=== PATIENT | female | born 1990 | race Caucasian/White ===

== ENCOUNTER 2021-08-05 09:42 | Emergency (ER) | payer BC, MEDICAID, OTHER ==
[~2021-08-05] VITALS: Ht 167.6 cm; Wt 59.0 kg
[2021-08-05 09:42] VITALS: BP 112/74
== END 2021-08-05 11:51 | disposition left against medical advice (07) ==
LOC: ER 09:42 → EDBD 09:42 → ER 09:53
DX: R53.83 Other fatigue (principal)

== ENCOUNTER 2023-06-06 15:40 | Inpatient (IN) | payer MEDICAID ==
[~2023-06-06] VITALS: Ht 170.2 cm; Wt 81.7 kg
[2023-06-06] MEDS ORDERED: cefTRIAXone 1GM/50ML D5W 50 ML IV ONE (16:00)
[2023-06-06] MEDS ORDERED: SODIUM CHLORIDE 0.9% 1,000 ML IV ONE ×2 (16:00)
[2023-06-06 16:46] VITALS: PULSE 88; RESP 18; O2SAT 100
[2023-06-06 17:12] LABS: Basophils # (auto) 0.1 10 ^3/uL (0-0.2); Basophils % (auto) 1.1 % (0.0-2.0); Eosinophils # (auto) 0.1 10 ^3/uL (0-0.8); Eosinophils % (auto) 2.3 % (0.0-7.0); Hematocrit 40.8 % (36.0-46.0); Hemoglobin 13.9 g/dL (12.2-16.2); Lymphocytes # (auto) 1.5 10 ^3/uL (0.4-5.4); Lymphocytes % (auto) 26.1 % (10.0-50.0); Mean Corpuscular Hemoglobin 31.8 pg (28.0-32.0); Mean Corpuscular Volume 93.6 fL (80.0-100.0); Monocytes # (auto) 0.3 10 ^3/uL (0-1.3); Monocytes % (auto) 5.3 % (0.0-12.0); Neutrophils # (auto) 3.7 10 ^3/uL (1.6-8.6); Neutrophils % (auto) 65.2 % (37.0-80.0); Nucleated Red Blood Cells % 0.1 %; Red Blood Cells 4.36 10^6/uL (4.0-5.20); Red Cell Distribution Width 12.9 % (11.8-14.3); White Blood Cell 5.6 10^3/uL (4.4-10.8)
[2023-06-06 17:29] LABS: Alanine Aminotransferase 15 U/L (7-40); Albumin 4.3 g/dL (3.2-4.8); Alkaline Phosphatase 51 U/L (46-116); Anion Gap 5.6 (5-15); Aspartate Aminotransferase 9 U/L (13-40); BUN/Creatinine Ratio 11.5 (10.0-20.0); Blood Urea Nitrogen 9 mg/dL (9-23); Carbon Dioxide 25.4 mmol/L (20-30); Chloride 108 mmol/L (98-107); Glucose 91 mg/dL (74-106); Potassium 3.8 mmol/L (3.5-5.1); Sodium 139 mmol/L (136-145)
[2023-06-06 17:30] LABS: Bilirubin, Total 2.1 mg/dL (0.2-1.0); Total Protein 6.6 g/dL (5.7-8.2)
[2023-06-06] MEDS ORDERED: SILVER SULFADIAZINE 1 % TOPICAL CREAM 50GM TOP ONE (19:00)
[2023-06-06] MEDS ORDERED: ACETAMINOPHEN 325 MG TAB PO PRN (19:00)
[2023-06-06] MEDS: HYDROcodone-ACET 5/325MG TAB PO PRN (19:03)
[2023-06-06] MEDS ORDERED: NALOXONE HCL 1MG/ML 2ML SYRINGE ONE (19:09)
[2023-06-06 19:20] VITALS: PULSE 90; RESP 20; O2SAT 97
[2023-06-06] MEDS ORDERED: LORazepam 2MG/ML-1ML VIAL ONE ×2 (19:26→19:46)
[2023-06-06] MEDS ORDERED: NALOXONE HCL 1MG/ML 2ML SYRINGE IV ONE ×2 (19:45→20:15)
[2023-06-06] MEDS ORDERED: LORazepam 2MG/ML-1ML VIAL IV PRN ×2 (20:00→20:15)
[2023-06-06 20:05] VITALS: PULSE 70; RESP 18; O2SAT 100
[2023-06-06 21:19] LABS: Urine Bacteria FEW /hpf (None Seen); Urine Blood 2+ /uL (Negative); Urine Clarity HAZY (Clear); Urine Color Yellow (Yellow); Urine Mucus FEW (None Seen); Urine Protein, UAD TRACE (Negative); Urine Specific Gravity 1.024 (1.001-1.035); Urine Urobilinogen Normal (Negative); Urine WBC 58 /hpf (0 - 5); Urine pH 5.5 (5.0-8.0)
[2023-06-06 21:24] LABS: Amphetamine Screen, Urine Pos (NEGATIVE); Barbiturate Scree,Urine Neg (NEGATIVE); Benzodiazephine Screen, Urine Neg (NEGATIVE); Cannabinoid Screen, Urine Neg (NEGATIVE); Cocaine Screen, Urine Neg (NEGATIVE); Opiate Scree,Urine Neg (NEGATIVE); Phencyclidine Screen, Urine Neg (NEGATIVE)
[2023-06-06] MEDS: ASCORBIC ACID 500 MG TAB PO SCH (22:00)
[2023-06-06] MEDS ORDERED: levETIRAcetam 500 MG/5ML INJ IV ONE (22:40)
[2023-06-06] MEDS: SODIUM CHLORIDE 0.9% 1,000 ML IV SCH (22:59)
[2023-06-06] MEDS: SILVER SULFADIAZINE 1 % TOPICAL CREAM 50GM TOP SCH (23:00)
[2023-06-07 05:02] LABS: Basophils # (auto) 0.1 10 ^3/uL (0-0.2); Basophils % (auto) 1.1 % (0.0-2.0); Eosinophils # (auto) 0.2 10 ^3/uL (0-0.8); Eosinophils % (auto) 2.4 % (0.0-7.0); Hematocrit 38.4 % (36.0-46.0); Hemoglobin 13.1 g/dL (12.2-16.2); Lymphocytes % (auto) 29.2 % (10.0-50.0); Mean Corpuscular Hemoglobin 31.8 pg (28.0-32.0); Mean Corpuscular Volume 93.6 fL (80.0-100.0); Monocytes # (auto) 0.5 10 ^3/uL (0-1.3); Monocytes % (auto) 7.8 % (0.0-12.0); Neutrophils # (auto) 4.2 10 ^3/uL (1.6-8.6); Neutrophils % (auto) 59.5 % (37.0-80.0); Nucleated Red Blood Cells % 0.1 %; Red Cell Distribution Width 12.7 % (11.8-14.3)
[2023-06-07 05:22] LABS: Alanine Aminotransferase 11 U/L (7-40); Albumin 3.4 g/dL (3.2-4.8); Alkaline Phosphatase 40 U/L (46-116); Anion Gap 4.4 (5-15); Aspartate Aminotransferase < 8 U/L (13-40); BUN/Creatinine Ratio 11.5 (10.0-20.0); Blood Urea Nitrogen 7 mg/dL (9-23); Calcium 7.9 mg/dL (8.5-10.1); Carbon Dioxide 25.6 mmol/L (20-30); Chloride 112 mmol/L (98-107); Glucose 77 mg/dL (74-106); Potassium 3.6 mmol/L (3.5-5.1); Sodium 142 mmol/L (136-145)
[2023-06-07 05:23] LABS: Bilirubin, Total 1.8 mg/dL (0.2-1.0); Total Protein 5.3 g/dL (5.7-8.2)
[2023-06-07] MEDS: SODIUM CHLORIDE 0.9% 1,000 ML IV SCH ×2 (08:14→17:38)
[2023-06-07] MEDS: ENOXAPARIN SOD 40 MG/0.4 ML SYRINGE SC SCH (08:15)
[2023-06-07] MEDS: ASCORBIC ACID 500 MG TAB PO SCH ×2 (08:31→21:21)
[2023-06-07] MEDS: cefTRIAXone 1GM/50ML D5W 50 ML IV SCH (08:31)
[2023-06-07] MEDS: ZINC SULFATE 220mg CAP or TAB PO SCH (08:32)
[2023-06-07] MEDS: SILVER SULFADIAZINE 1 % TOPICAL CREAM 50GM TOP SCH ×2 (08:32→21:21)
[2023-06-07] MEDS: MULTIPLE VITAMIN TAB PO SCH (08:32)
[2023-06-07] MEDS: HYDROcodone-ACET 5/325MG TAB PO PRN ×2 (10:05→17:09)
[2023-06-07 10:14] VITALS: PULSE 84; RESP 19; O2SAT 94
[2023-06-07] MEDS ORDERED: VANCOMYCIN PER PHARMACY 0 MG IV SCH (12:45)
[2023-06-07] MEDS: VANCOMYCIN 1GM/250ML 250 ML IV SCH ×2 (13:28→23:52)
[2023-06-07] MEDS ORDERED: LORazepam 2MG/ML-1ML VIAL IV PRN (13:30)
[2023-06-07] MEDS ORDERED: VANCOMYCIN 1GM/250ML 250 ML IV SCH (14:00)
[2023-06-07 20:00] VITALS: PULSE 56; RESP 16; O2SAT 100
[2023-06-07 22:00] VITALS: BP 111/70; PULSE 61; RESP 16; TEMP 97.5; O2SAT 100
[2023-06-08] VITALS (21 sets, daily range): BP systolic 103–119; BP diastolic 62–83; PULSE 57–89; RESP 13–20; TEMP 97.5–98.3; O2SAT 93–100
[2023-06-08] MEDS: HYDROcodone-ACET 5/325MG TAB PO PRN ×2 (00:40→04:43)
[2023-06-08 06:08] LABS: Alanine Aminotransferase 11 U/L (7-40); Albumin 3.4 g/dL (3.2-4.8); Alkaline Phosphatase 40 U/L (46-116); Anion Gap 4.5 (5-15); Aspartate Aminotransferase 8 U/L (13-40); Bilirubin, Total 1.8 mg/dL (0.2-1.0); Calcium 8.1 mg/dL (8.5-10.1); Carbon Dioxide 26.5 mmol/L (20-30); Chloride 107 mmol/L (98-107); Glucose 76 mg/dL (74-106); Potassium 3.3 mmol/L (3.5-5.1); Sodium 138 mmol/L (136-145); Total Protein 5.2 g/dL (5.7-8.2)
[2023-06-08 06:09] LABS: Basophils # (auto) 0 10 ^3/uL (0-0.2); Basophils % (auto) 0.6 % (0.0-2.0); Eosinophils # (auto) 0.2 10 ^3/uL (0-0.8); Eosinophils % (auto) 4.9 % (0.0-7.0); Hematocrit 38.3 % (36.0-46.0); Lymphocytes % (auto) 39.3 % (10.0-50.0); Mean Corpuscular Hemoglobin 31.5 pg (28.0-32.0); Mean Corpuscular Hgb Conc. 34.1 g/dL (32.0-36.0); Mean Corpuscular Volume 92.5 fL (80.0-100.0); Monocytes # (auto) 0.3 10 ^3/uL (0-1.3); Neutrophils # (auto) 2.4 10 ^3/uL (1.6-8.6); Neutrophils % (auto) 48.2 % (37.0-80.0); Nucleated Red Blood Cells % 0.1 %; Red Blood Cells 4.14 10^6/uL (4.0-5.20); Red Cell Distribution Width 12.8 % (11.8-14.3)
[2023-06-08] MEDS: SODIUM CHLORIDE 0.9% 1,000 ML IV SCH (06:29)
[2023-06-08 06:40] LABS: BUN/Creatinine Ratio 9.3 (10.0-20.0); Blood Urea Nitrogen < 5 mg/dL (9-23)
[2023-06-08] MEDS ORDERED: POTASSIUM EFFERVESENT TAB 25 MEQ PO ONE (06:45)
[2023-06-08] MEDS: LORazepam 2MG/ML-1ML VIAL IV PRN ×8 (08:32→18:54)
[2023-06-08] MEDS ORDERED: POTASSIUM CHL 20MEQ/100ML 100 ML IV ONE (09:15)
[2023-06-08] MEDS: CALCIUM GLUC 1,000mg/50ml-NS 50 ML IV SCH ×2 (09:31→10:10)
[2023-06-08] MEDS: ASCORBIC ACID 500 MG TAB PO SCH ×2 (10:00→21:54)
[2023-06-08] MEDS: ZINC SULFATE 220mg CAP or TAB PO SCH (10:00)
[2023-06-08] MEDS: MULTIPLE VITAMIN TAB PO SCH (10:00)
[2023-06-08] MEDS: VANCOMYCIN 1GM/250ML 250 ML IV SCH ×2 (10:04→21:54)
[2023-06-08] MEDS: SILVER SULFADIAZINE 1 % TOPICAL CREAM 50GM TOP SCH ×2 (10:14→21:55)
[2023-06-08] MEDS: ENOXAPARIN SOD 40 MG/0.4 ML SYRINGE SC SCH (10:15)
[2023-06-08] MEDS ORDERED: LORazepam 2MG/ML-1ML VIAL IV PRN (10:30)
[2023-06-09] VITALS (18 sets, daily range): BP systolic 89–127; BP diastolic 44–88; PULSE 69–94; RESP 8–25; TEMP 97.1–98.4; O2SAT 95–100
[2023-06-09] MEDS: SODIUM CHLORIDE 0.9% 1,000 ML IV SCH ×2 (00:20→13:55)
[2023-06-09] MEDS: LORazepam 2MG/ML-1ML VIAL IV PRN ×2 (05:56→16:57)
[2023-06-09] MEDS: VANCOMYCIN 1GM/250ML 250 ML IV SCH ×2 (06:02→17:59)
[2023-06-09 06:06] LABS: Alanine Aminotransferase 10 U/L (7-40); Albumin 3.4 g/dL (3.2-4.8); Alkaline Phosphatase 39 U/L (46-116); Anion Gap 7.6 (5-15); Aspartate Aminotransferase < 8 U/L (13-40); Bilirubin, Total 1.7 mg/dL (0.2-1.0); Calcium 8.4 mg/dL (8.7-10.4); Carbon Dioxide 26.4 mmol/L (20-30); Chloride 106 mmol/L (98-107); Potassium 3.2 mmol/L (3.5-5.1); Sodium 140 mmol/L (136-145); Total Protein 5.2 g/dL (5.7-8.2)
[2023-06-09 06:25] LABS: Glucose 70 mg/dL (74-106)
[2023-06-09 06:31] LABS: Basophils # (auto) 0 10 ^3/uL (0-0.2); Basophils % (auto) 0.6 % (0.0-2.0); Eosinophils # (auto) 0.2 10 ^3/uL (0-0.8); Eosinophils % (auto) 4.3 % (0.0-7.0); Hematocrit 37.6 % (36.0-46.0); Hemoglobin 12.9 g/dL (12.2-16.2); Lymphocytes # (auto) 1.2 10 ^3/uL (0.4-5.4); Lymphocytes % (auto) 26.6 % (10.0-50.0); Mean Corpuscular Hemoglobin 31.6 pg (28.0-32.0); Mean Corpuscular Hgb Conc. 34.3 g/dL (32.0-36.0); Mean Corpuscular Volume 92.2 fL (80.0-100.0); Monocytes # (auto) 0.3 10 ^3/uL (0-1.3); Monocytes % (auto) 6.2 % (0.0-12.0); Neutrophils # (auto) 2.9 10 ^3/uL (1.6-8.6); Neutrophils % (auto) 62.3 % (37.0-80.0); Nucleated Red Blood Cells % 0.1 %; Red Blood Cells 4.08 10^6/uL (4.0-5.20); Red Cell Distribution Width 12.6 % (11.8-14.3); White Blood Cell 4.7 10^3/uL (4.4-10.8)
[2023-06-09 06:37] LABS: BUN/Creatinine Ratio 11.1 (10.0-20.0); Blood Urea Nitrogen < 5 mg/dL (9-23)
[2023-06-09] MEDS: cefTRIAXone 1GM/50ML D5W 50 ML IV SCH (08:35)
[2023-06-09] MEDS ORDERED: POTASSIUM CHLORIDE 40 MEQ, LIDOCAINE 1% (LOCAL ANESTH.) 4 ML in SODIUM CHL 0.9% 250 ML IV ONE (09:00)
[2023-06-09] MEDS: ENOXAPARIN SOD 40 MG/0.4 ML SYRINGE SC SCH (10:29)
[2023-06-09] MEDS: MULTIPLE VITAMIN TAB PO SCH (10:29)
[2023-06-09] MEDS: SILVER SULFADIAZINE 1 % TOPICAL CREAM 50GM TOP SCH ×2 (10:29→23:44)
[2023-06-09] MEDS: ZINC SULFATE 220mg CAP or TAB PO SCH (10:29)
[2023-06-09] MEDS: ASCORBIC ACID 500 MG TAB PO SCH ×2 (10:29→23:44)
[2023-06-09] MEDS ORDERED: CYANOCOBALAMIN (B-12) 1000 MCG/1 ML VIAL IM ONE (18:15)
[2023-06-10] VITALS (11 sets, daily range): BP systolic 85–116; BP diastolic 49–84; PULSE 65–92; RESP 10–18; TEMP 97.7–98.6; O2SAT 94–99
[2023-06-10] MEDS ORDERED: VANCOMYCIN 1GM/250ML 250 ML IV SCH (04:00)
[2023-06-10 05:39] LABS: Basophils # (auto) 0 10 ^3/uL (0-0.2); Basophils % (auto) 0.7 % (0.0-2.0); Eosinophils # (auto) 0.3 10 ^3/uL (0-0.8); Hematocrit 38.5 % (36.0-46.0); Hemoglobin 13.1 g/dL (12.2-16.2); Lymphocytes # (auto) 2.2 10 ^3/uL (0.4-5.4); Lymphocytes % (auto) 30.9 % (10.0-50.0); Mean Corpuscular Hemoglobin 31.7 pg (28.0-32.0); Mean Corpuscular Hgb Conc. 34.1 g/dL (32.0-36.0); Monocytes # (auto) 0.5 10 ^3/uL (0-1.3); Monocytes % (auto) 7.7 % (0.0-12.0); Neutrophils % (auto) 56.7 % (37.0-80.0); Red Blood Cells 4.14 10^6/uL (4.0-5.20); Red Cell Distribution Width 12.7 % (11.8-14.3); White Blood Cell 7.1 10^3/uL (4.4-10.8)
[2023-06-10] MEDS: SODIUM CHLORIDE 0.9% 1,000 ML IV SCH (06:19)
[2023-06-10 06:34] LABS: Albumin 3.5 g/dL (3.2-4.8); Anion Gap 4.9 (5-15); Aspartate Aminotransferase < 8 U/L (13-40); BUN/Creatinine Ratio 10.3 (10.0-20.0); Bilirubin, Total 0.8 mg/dL (0.2-1.0); Blood Urea Nitrogen 7 mg/dL (9-23); Calcium 8.8 mg/dL (8.7-10.4); Carbon Dioxide 27.1 mmol/L (20-30); Chloride 107 mmol/L (98-107); Glucose 113 mg/dL (74-106); Potassium 4.1 mmol/L (3.5-5.1); Sodium 139 mmol/L (136-145); Total Protein 5.4 g/dL (5.7-8.2)
[2023-06-10 06:37] LABS: Alanine Aminotransferase < 9 U/L (7-40)
[2023-06-10 06:57] LABS: Alkaline Phosphatase 42 U/L (46-116)
[2023-06-10] MEDS: cefTRIAXone 1GM/50ML D5W 50 ML IV SCH (09:00)
[2023-06-10] MEDS ORDERED: AUG875T PO (09:26)
[2023-06-10] MEDS: SILVER SULFADIAZINE 1 % TOPICAL CREAM 50GM TOP SCH (10:00)
[2023-06-10] MEDS ORDERED: CYANOCOBALAMIN (B-12) 1000 MCG/1 ML VIAL IM SCH (10:00)
[2023-06-10] MEDS: MULTIPLE VITAMIN TAB PO SCH (10:15)
[2023-06-10] MEDS: ASCORBIC ACID 500 MG TAB PO SCH (10:15)
[2023-06-10] MEDS: ZINC SULFATE 220mg CAP or TAB PO SCH (10:15)
[2023-06-10] MEDS: ENOXAPARIN SOD 40 MG/0.4 ML SYRINGE SC SCH (10:15)
== END 2023-06-10 15:16 | disposition home or self-care (01) | DRG 383 ==
LOC: EDUNIT# 15:40 → ER 15:40 → EDBD 15:40 → OVERFLOW 18:54 → TELE-CENTR 06-07 17:28 → DOU IN ICU 06-08 11:04
PROVIDERS: ADMIT Internal Medicine Pulmonary Disease; ATTEND Internal Medicine Pulmonary Disease
DX: L03.115 Cellulitis of right lower limb (principal); G40.401 Other generalized epilepsy and epileptic syndromes, not intractable, with status epilepticus; E53.8 Deficiency of other specified B group vitamins; N39.0 Urinary tract infection, site not specified; L03.116 Cellulitis of left lower limb; E80.6 Other disorders of bilirubin metabolism; Z83.3 Family history of diabetes mellitus
CPT/HCPCS: 36415; 70450; 70551; 71045; 73700; 80053; 80202; 80307; 81001; 82010; 82550; 82607; 83036; 83605; 83735; 84146; 84443; 85025; 87040; 87081; 87086; 93970; 95819; 96365; 96367; 96368; 96372; 97163; G0378; J0696; J2001; J3480; J7060

== ENCOUNTER 2023-06-11 05:04 | Inpatient (IN) | payer MEDICAID ==
[~2023-06-11] VITALS: Ht 175.3 cm; Wt 75.0 kg
[~2023-06-11 05:04] MED LIST: AUG875T PO
[2023-06-11 05:45] LABS: Alanine Aminotransferase 16 U/L (7-40); Albumin 4.2 g/dL (3.2-4.8); Alkaline Phosphatase 47 U/L (46-116); Anion Gap 5.7 (5-15); Aspartate Aminotransferase 12 U/L (13-40); BUN/Creatinine Ratio 9.6 (10.0-20.0); Blood Urea Nitrogen 7 mg/dL (9-23); Calcium 9.1 mg/dL (8.7-10.4); Carbon Dioxide 28.3 mmol/L (20-30); Chloride 107 mmol/L (98-107); Glucose 106 mg/dL (74-106); Potassium 3.7 mmol/L (3.5-5.1); Sodium 141 mmol/L (136-145)
[2023-06-11 05:46] LABS: Bilirubin, Total 0.8 mg/dL (0.2-1.0); Total Protein 6.2 g/dL (5.7-8.2)
[2023-06-11 06:16] LABS: Basophils # (auto) 0 10 ^3/uL (0-0.2); Basophils % (auto) 0.6 % (0.0-2.0); Eosinophils # (auto) 0.1 10 ^3/uL (0-0.8); Eosinophils % (auto) 2.2 % (0.0-7.0); Hematocrit 39.1 % (36.0-46.0); Hemoglobin 13.4 g/dL (12.2-16.2); Lymphocytes # (auto) 1.8 10 ^3/uL (0.4-5.4); Lymphocytes % (auto) 27.1 % (10.0-50.0); Mean Corpuscular Hemoglobin 31.7 pg (28.0-32.0); Mean Corpuscular Hgb Conc. 34.2 g/dL (32.0-36.0); Mean Corpuscular Volume 92.7 fL (80.0-100.0); Monocytes # (auto) 0.5 10 ^3/uL (0-1.3); Monocytes % (auto) 7.7 % (0.0-12.0); Neutrophils # (auto) 4.2 10 ^3/uL (1.6-8.6); Neutrophils % (auto) 62.4 % (37.0-80.0); Nucleated Red Blood Cells % 0.1 %; Red Blood Cells 4.21 10^6/uL (4.0-5.20); Red Cell Distribution Width 12.9 % (11.8-14.3); White Blood Cell 6.7 10^3/uL (4.4-10.8)
[2023-06-11] MEDS ORDERED: LORazepam 2MG/ML-1ML VIAL ONE (07:19)
[2023-06-11] MEDS ORDERED: diphenhdrAMINE HCL 50 MG/1 ML VL ONE (07:35)
[2023-06-11] MEDS ORDERED: ONDANSETRON HCL 4 MG/2 ML VIAL IV ONE (08:00)
[2023-06-11] MEDS ORDERED: LORazepam 2MG/ML-1ML VIAL IV ONE (08:15)
[2023-06-11] MEDS ORDERED: diphenhdrAMINE HCL 50 MG/1 ML VL IV ONE (08:15)
[2023-06-11] MEDS ORDERED: SODIUM CHLORIDE 0.9% 1,000 ML IV ONE (09:00)
[2023-06-11 09:37] LABS: INR 1.05 (0.9-1.15); Partial Thromboplastin Time 27.7 SEC (24.5-34.5)
[2023-06-11 10:05] LABS: Urine Bacteria NONE SEEN /hpf (None Seen); Urine Blood Negative /uL (Negative); Urine Budding Yeast OCCASIONAL /hpf (None Seen); Urine Clarity HAZY (Clear); Urine Color Colorless (Yellow); Urine Protein, UAD Negative (Negative); Urine Urobilinogen Normal (Negative); Urine WBC 1 /hpf (0 - 5); Urine pH 7.5 (5.0-8.0)
[2023-06-11 10:22] LABS: Amphetamine Screen, Urine Pos (NEGATIVE)
[2023-06-11 10:25] LABS: Barbiturate Scree,Urine Neg (NEGATIVE); Benzodiazephine Screen, Urine Neg (NEGATIVE); Cannabinoid Screen, Urine Neg (NEGATIVE); Cocaine Screen, Urine Neg (NEGATIVE); Opiate Scree,Urine Neg (NEGATIVE); Phencyclidine Screen, Urine Neg (NEGATIVE)
[2023-06-11] MEDS ORDERED: DOCUSATE SOD 100 MG CAP PO PRN (11:00)
[2023-06-11] MEDS ORDERED: ONDANSETRON HCL 4 MG/2 ML VIAL IV PRN (11:00)
[2023-06-11] MEDS: SODIUM CHLORIDE 0.9% 1,000 ML IV SCH ×2 (11:57→21:13)
[2023-06-11 13:41] VITALS: PULSE 80; RESP 20; O2SAT 96
[2023-06-11 14:00] VITALS: PULSE 66; RESP 14; O2SAT 98
[2023-06-11] MEDS: LORazepam 2MG/ML-1ML VIAL IV PRN ×2 (16:23→18:13)
[2023-06-11] MEDS ORDERED: NALOXONE HCL 1MG/ML 2ML SYRINGE IV ONE (18:00)
[2023-06-11] MEDS ORDERED: NALOXONE HCL 1MG/ML 2ML SYRINGE ONE (18:02)
[2023-06-11] MEDS ORDERED: ETOMIDATE (2MG/ML) 20ML VIAL IV ONE ×2 (18:17→18:30)
[2023-06-11] MEDS ORDERED: SUCCINYLCHOLINE CHLORIDE 20 MG/ML 10ML VIAL IV ONE ×2 (18:17→18:30)
[2023-06-11] MEDS ORDERED: MIDAZOLAM DRIP 50 mg/50mL 50 ML IV SCH (18:30)
[2023-06-11] MEDS ORDERED: PHENYTOIN IV DILANTIN 1,000 MG in SODIUM CHL 0.9% 250 ML IV ONE (18:45)
[2023-06-11] MEDS: PHENYTOIN SODIUM 50 MG/ML 2ML VIAL IV SCH (22:28)
[2023-06-12 03:34] VITALS: PULSE 84; RESP 14; O2SAT 99
[2023-06-12] MEDS: SODIUM CHLORIDE 0.9% 1,000 ML IV SCH ×3 (03:40→19:12)
[2023-06-12 06:08] LABS: Basophils # (auto) 0.1 10 ^3/uL (0-0.2); Basophils % (auto) 1.1 % (0.0-2.0); Eosinophils # (auto) 0.4 10 ^3/uL (0-0.8); Eosinophils % (auto) 6.3 % (0.0-7.0); Hematocrit 36.1 % (36.0-46.0); Hemoglobin 12.4 g/dL (12.2-16.2); Lymphocytes # (auto) 1.7 10 ^3/uL (0.4-5.4); Lymphocytes % (auto) 29.2 % (10.0-50.0); Mean Corpuscular Hgb Conc. 34.2 g/dL (32.0-36.0); Mean Corpuscular Volume 93.5 fL (80.0-100.0); Monocytes # (auto) 0.3 10 ^3/uL (0-1.3); Monocytes % (auto) 6.1 % (0.0-12.0); Neutrophils # (auto) 3.2 10 ^3/uL (1.6-8.6); Neutrophils % (auto) 57.3 % (37.0-80.0); Nucleated Red Blood Cells % 0.2 %; Red Blood Cells 3.86 10^6/uL (4.0-5.20); White Blood Cell 5.7 10^3/uL (4.4-10.8)
[2023-06-12 06:12] LABS: Alanine Aminotransferase 15 U/L (7-40); Alkaline Phosphatase 38 U/L (46-116); Anion Gap 5.1 (5-15); Calcium 8.5 mg/dL (8.5-10.1); Carbon Dioxide 26.9 mmol/L (20-30); Chloride 108 mmol/L (98-107); Glucose 88 mg/dL (74-106); Potassium 3.7 mmol/L (3.5-5.1); Sodium 140 mmol/L (136-145)
[2023-06-12 06:13] LABS: Albumin 3.6 g/dL (3.2-4.8); Aspartate Aminotransferase 16 U/L (13-40); Bilirubin, Total 1.2 mg/dL (0.2-1.0); Total Protein 5.6 g/dL (5.7-8.2)
[2023-06-12] MEDS: PHENYTOIN SODIUM 50 MG/ML 2ML VIAL IV SCH ×3 (06:21→22:59)
[2023-06-12 06:24] LABS: BUN/Creatinine Ratio 9.4 (10.0-20.0); Blood Urea Nitrogen < 5 mg/dL (9-23)
[2023-06-12 07:35] VITALS: PULSE 75; RESP 14; O2SAT 97
[2023-06-12] MEDS: LORazepam 2MG/ML-1ML VIAL IV PRN ×3 (11:39→22:08)
[2023-06-12] MEDS: MORPHINE SULFATE INJ 2 MG/ml SYRG IV PRN ×2 (13:02→16:46)
[2023-06-12] MEDS ORDERED: AZITHROMYCIN 250 MG TAB PO ONE (18:15)
[2023-06-12] MEDS ORDERED: KETOROLAC TROMETH 30 MG/ML 1ML VIAL IV ONE (18:15)
[2023-06-12] MEDS ORDERED: LORATADINE 10 MG TAB PO ONE (18:15)
[2023-06-12 20:25] VITALS: PULSE 84; RESP 13; O2SAT 97
[2023-06-12] MEDS ORDERED: levETIRAcetam 500 MG/5ML INJ IV ONE (23:37)
[2023-06-13] MEDS: SODIUM CHLORIDE 0.9% 1,000 ML IV SCH (05:59)
[2023-06-13] MEDS: PHENYTOIN SODIUM 50 MG/ML 2ML VIAL IV SCH (06:28)
[2023-06-13] MEDS ORDERED: HYDROcodone-ACET 5/325MG TAB PO PRN (06:30)
[2023-06-13] MEDS: LORazepam 2MG/ML-1ML VIAL IV PRN (07:04)
[2023-06-13] MEDS ORDERED: AZITHROMYCIN 250 MG TAB PO SCH (10:00)
[2023-06-13] MEDS ORDERED: LORATADINE 10 MG TAB PO SCH (10:00)
[2023-06-13] MEDS ORDERED: SILVER SULFADIAZINE 1 % TOPICAL CREAM 50GM TOP ONE (11:30)
[2023-06-13 11:50] VITALS: BP 124/80; RESP 16; TEMP 99; O2SAT 96
[2023-06-13 12:08] VITALS: PULSE 85
[2023-06-13] MEDS ORDERED: SILVER SULFADIAZINE 1 % TOPICAL CREAM 50GM TOP SCH (22:00)
== END 2023-06-13 13:00 | disposition left against medical advice (07) | DRG 53 ==
LOC: ER 05:04 → OVERFLOW 10:59
PROVIDERS: ADMIT Nurse Practitioner Family; ATTEND Nurse Practitioner Family
DX: G40.909 Epilepsy, unspecified, not intractable, without status epilepticus (principal); F15.10 Other stimulant abuse, uncomplicated; R51.9 Headache, unspecified; Z53.29 Procedure and treatment not carried out because of patient's decision for other reasons; Z59.00 Homelessness unspecified; Z91.410 Personal history of adult physical and sexual abuse; Z20.822 Contact with and (suspected) exposure to COVID-19
CPT/HCPCS: 36415; 70450; 80053; 80185; 80307; 81001; 82962; 84484; 85025; 85610; 85730; 93005; 96365; 96375; G0378; J0330; J1885; J2405; J7060

== ENCOUNTER 2025-05-02 07:06 | Emergency (ER) | payer MEDICAID ==
[~2025-05-02] VITALS: Ht 175.3 cm; Wt 70.1 kg
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
[2025-05-02 08:16] LABS: Hematocrit 37.7 % (36.0-46.0); Hemoglobin 13.1 g/dL (12.2-16.2); Mean Corpuscular Hemoglobin 31.2 pg (28.0-32.0); Mean Corpuscular Volume 90.2 fL (80.0-100.0); Nucleated Red Blood Cells % 0.1 %
[2025-05-02 08:22] LABS: Chloride 107 mmol/L (98-107); Potassium 3.6 mmol/L (3.5-5.1); Sodium 139 mmol/L (136-145)
[2025-05-02 08:23] LABS: Anion Gap 8 (5-15); Calcium 9.5 mg/dL (8.7-10.4); Carbon Dioxide 24 mmol/L (20-31)
[2025-05-02 08:28] LABS: BUN/Creatinine Ratio 13.1 (10.0-20.0); Blood Urea Nitrogen 8 mg/dL (9-23); Glucose 87 mg/dL (74-106)
[2025-05-02] MEDS: LORazepam 2MG/ML-1ML VIAL IV ONE (09:30)
[2025-05-02] MEDS: LORazepam 2MG/ML-1ML VIAL ONE (09:34)
[2025-05-02] MEDS: diphenhdrAMINE HCL 50 MG/1 ML VL IV ONE (09:35)
[2025-05-02 09:44] VITALS: PULSE 82; RESP 19; O2SAT 97
[2025-05-02] MEDS: ONDANSETRON HCL 4 MG/2 ML VIAL IV ONE (09:51)
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
[2025-05-02 12:03] LABS: Urine Protein, UAD Negative (Negative)
[2025-05-02 12:11] LABS: Amphetamine Screen, Urine Pos (NEGATIVE); Barbiturate Scree,Urine Neg (NEGATIVE); Benzodiazephine Screen, Urine Neg (NEGATIVE); Cannabinoid Screen, Urine Neg (NEGATIVE); Cocaine Screen, Urine Neg (NEGATIVE); Opiate Scree,Urine Neg (NEGATIVE); Phencyclidine Screen, Urine Neg (NEGATIVE)
[2025-05-02] MEDS: SODIUM CHLORIDE 0.9% 500 ML IV ONE (12:18)
[2025-05-02 14:20] VITALS: BP 96/66; PULSE 72; RESP 16; TEMP 97.8; O2SAT 99
== END 2025-05-02 15:23 | disposition short-term general hospital (02) ==
LOC: ER 07:06
DX: O09.91 Supervision of high risk pregnancy, unspecified, first trimester (principal); R10.2 Pelvic and perineal pain; S39.81XA Other specified injuries of abdomen, initial encounter; Z86.79 Personal history of other diseases of the circulatory system; Z3A.09 9 weeks gestation of pregnancy; X58.XXXA Exposure to other specified factors, initial encounter; Y93.89 Activity, other specified; Y92.89 Other specified places as the place of occurrence of the external cause; Y99.8 Other external cause status
CPT/HCPCS: 36415; 76801; 80048; 80307; 81001; 81025; 84702; 85025; 96361; 96374; 96375; 99285; J1200; J2060; J2405; J7040